=== PATIENT | male | born 2000 | race Two or more races ===

== ENCOUNTER 2022-12-31 12:12 | Emergency (ER) | payer OTHER ==
[~2022-12-31] VITALS: Ht 188 cm; Wt 104.3 kg
== END 2022-12-31 15:18 | disposition home or self-care (01) ==
LOC: ER 12:12
DX: K29.70 Gastritis, unspecified, without bleeding (principal)

== ENCOUNTER 2023-01-04 19:30 | Emergency (ER) | payer OTHER ==
[~2023-01-04] VITALS: Ht 188 cm; Wt 102.1 kg
== END 2023-01-04 22:30 | disposition home or self-care (01) ==
LOC: ER 19:30
DX: R53.81 Other malaise (principal); M94.0 Chondrocostal junction syndrome [Tietze]